=== PATIENT | female | born 1995 | race Caucasian/White ===

== ENCOUNTER 2020-10-16 10:41 | Emergency (ER) | payer OTHER ==
[2020-10-16] MEDS ORDERED: Ondansetron ODT 4 MG TAB ONE (11:37)
== END 2020-10-16 11:41 | disposition home or self-care (01) ==
LOC: CSHERS 10:41
DX: A08.4 Viral intestinal infection, unspecified (principal)
CPT/HCPCS: 99283; Q0162

== ENCOUNTER 2021-03-12 17:59 | Emergency (ER) | payer OTHER | END 2021-03-12 21:01 | disposition left against medical advice (07) | LOC: CSHERS 17:59 | DX: Z53.21 Procedure and treatment not carried out due to patient leaving prior to being seen by health care provider (principal) ==

== ENCOUNTER 2021-12-08 19:41 | Emergency (ER) | payer OTHER ==
[2021-12-08] MEDS ORDERED: Ondansetron PF 4 MG/2 ML Vial ONE (20:17)
[2021-12-08 20:19] LABS: #Eosinphils 0.2 10x3/uL (0.0-0.5); #Monocytes 0.8 10x3/uL (0.0-1.1); #Neutrophils 11.1 10x3/uL (1.5-8.4); %Basophils 0.2 % (0.0-2.0); %Eosinophils 1.8 % (0.0-6.0); %Lymphocytes 6.6 % (18.0-47.0); Hemoglobin 13.8 g/dL (12.0-15.5); Mean Corpuscular HGB CONC 34.1 g/dL (32.0-36.0); Mean Corpuscular Hemoglobin 28.6 pg (27.0-33.0); Mean Platelet Volume 9.1 fl (7.4-10.4); Platelet Count 268 10x3/uL (150-450); Red Blood Cell (RBC) Count 4.82 10x6/uL (3.90-5.03)
[2021-12-08 20:28] LABS: BHCG - Serum Negative (NEGATIVE); Pregs Control Background? CLEAR/WHITE (CLR/WHITE); Pregs Control Bar Appear? YES (CONTROL BAR)
[2021-12-08 20:35] LABS: ALT (SGPT) 16 U/L (8-55); AST (SGOT) 17 U/L (5-34); Albumin 4.5 g/dL (3.5-5.0); Alkaline Phosphatase 75 U/L (40-110); Anion Gap 15 mmol/L (10-20); BUN (Urea Nitrogen) 11 mg/dL (7.0-18.7); Bilirubin, Total 0.6 mg/dL (0.2-1.2); Calc. Creatinine Clearance 0 mL/min (70-130); Calcium 9.4 mg/dL (7.8-10.44); Carbon Dioxide 24 mmol/L (22-29); Chloride 103 mmol/L (98-107); Globulin 3.3 g/dL (2.4-3.5); Glucose 95 mg/dL (70-105); Lipase 38 U/L (8-78); Potassium 3.9 mmol/L (3.5-5.1); Protein, Total 7.8 g/dL (6.0-8.3); Sodium 138 mmol/L (136-145)
[2021-12-08] MEDS ORDERED: Ketorolac Tromethamine 30 MG/ML VIAL ONE (21:43)
== END 2021-12-09 00:23 | disposition home or self-care (01) ==
LOC: CSHERS 19:41
DX: K52.9 Noninfective gastroenteritis and colitis, unspecified (principal); N83.202 Unspecified ovarian cyst, left side
CPT/HCPCS: 74177; 76856; 80053; 83690; 84703; 85025; 96361; 96374; 96375; J1885; J2405

== ENCOUNTER 2022-08-08 17:50 | Emergency (ER) | payer OTHER | END 2022-08-08 19:54 | disposition left against medical advice (07) | LOC: CSHERS 17:50 | DX: Z53.21 Procedure and treatment not carried out due to patient leaving prior to being seen by health care provider (principal) ==

== ENCOUNTER 2022-08-09 12:23 | Emergency (ER) | payer OTHER | END 2022-08-09 14:09 | disposition left against medical advice (07) | LOC: CSHERS 12:23 | DX: Z53.21 Procedure and treatment not carried out due to patient leaving prior to being seen by health care provider (principal) ==

== ENCOUNTER 2024-06-26 07:31 | Emergency (ER) | payer OTHER, SELFPAY ==
[2024-06-26] MEDS ORDERED: Ibuprofen 200 MG TAB ONE (07:52)
== END 2024-06-26 08:26 | disposition home or self-care (01) ==
LOC: CSHERS 07:31
DX: J02.9 Acute pharyngitis, unspecified (principal); F17.290 Nicotine dependence, other tobacco product, uncomplicated
CPT/HCPCS: 87081; 87430; 99283